=== PATIENT | male | born 1945 | race Caucasian/White ===

== ENCOUNTER 2017-03-22 18:09 | Emergency (ER) | payer OTHER ==
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
[2017-03-22 18:24] VITALS: RESP 16
[2017-03-22] MEDS ORDERED: IOPAMIDOL (ISOVUE-300) 100 ML BTL ONE (18:35)
[2017-03-22] MEDS ORDERED: OXYCODONE/APAP 5/325MG PREPACK#4 BTL TAKEHOME ONE (19:30)
[2017-03-22 20:17] VITALS: BP 134/87; PULSE 110; TEMP 98.2; O2SAT 95
== END 2017-03-22 20:05 | disposition home or self-care (01) ==
DX: S22.42XA Multiple fractures of ribs, left side, initial encounter for closed fracture (principal); V26.4XXA Motorcycle driver injured in collision with other nonmotor vehicle in traffic accident, initial encounter; Y92.410 Unspecified street and highway as the place of occurrence of the external cause; Y99.8 Other external cause status; Y93.55 Activity, bike riding
CPT/HCPCS: 82947-QW; Q9967